=== PATIENT | male | born 1985 | race Caucasian/White ===

== ENCOUNTER 2016-11-13 15:31 | Emergency (ER) | payer OTHER ==
[~2016-11-13] VITALS: Ht 160 cm; Wt 76.7 kg
[~2016-11-13 15:31] MED LIST: LOSARTAN POTASS50 MG PO; PREDNISONE10 MG PO
[2016-11-13 16:07] LABS: ADD MIUA? YES; BILIRUBIN NEGATIVE; BLOOD NEGATIVE; COLOR YELLOW ((YELLOW)); GLUCOSE (STRIP) NEGATIVE; KETONES NEGATIVE; LEUKOCYTES NEGATIVE; NITRITE NEGATIVE; PROTEIN (STRIP) 30; SPECIFIC GRAVITY 1.033 (1.000-1.030); UROBILINOGEN 0.2 MG/DL (0.2-1.0)
[2016-11-13 16:14] LABS: BACTERIA NONE SEEN /HPF; EPITHELIAL CELLS NONE SEEN /HPF; MUCUS 1+ /LPF; RED BLOOD CELLS 0-5 /HPF (0-5); UCUL ADDED? NO; WHITE BLOOD CELLS 0-5 /HPF (0-5)
[2016-11-13 16:15] LABS: HEMATOCRIT 48.9 % (38.0-50.0); MCHC 34.6 G/DL (30.0-36.0); MCV 86.9 FL (86-99); MEAN PLAT.VOLUME 9.9 uM^3 (9.0-12.4); PLATELET COUNT 333 K/uL (156-360); RBC DIS.WIDTH-CV 12.5 % (11.8-14.6); RBC DIS.WIDTH-SD 39.6 % (39-53); RED BLOOD COUNT 5.63 M/uL (4.00-5.50); WHITE BLOOD COUNT 11.9 K/uL (4.1-10.2)
[2016-11-13 16:21] LABS: CHLORIDE 105 mEq/L (99-109); SODIUM 144 mEq/L (136-147)
[2016-11-13 16:24] LABS: GLUCOSE 107 mg/dL (70-99)
[2016-11-13 16:25] LABS: ANION GAP 13 MEQ/L (2-14)
[2016-11-13 16:26] LABS: TOTAL BILIRUBIN 0.4 mg/dL (0.0-1.0)
[2016-11-13 16:27] LABS: ALKALINE PHOSPHATASE 71 IU/L (3-129); GFR ESTIMATE (CALCULATED) > 59 mL/min/
[2016-11-13 16:28] LABS: UREA NITROGEN (BUN) 12 mg/dL (9-23)
[2016-11-13 16:51] LABS: LIPASE 30 U/L (1.0-51.0)
[2016-11-13] MEDS ORDERED: PHENERGAN25 MG PR (18:50)
[2016-11-13] MEDS ORDERED: ZOFRAN ODT4 MG PO (18:50)
[2016-11-13 19:00] VITALS: BP 141/91
== END 2016-11-13 19:01 | disposition home or self-care (01) ==
LOC: EME 15:31
DX: T43.225A Adverse effect of selective serotonin reuptake inhibitors, initial encounter (principal); R11.2 Nausea with vomiting, unspecified; B34.9 Viral infection, unspecified; I10 Essential (primary) hypertension; K76.0 Fatty (change of) liver, not elsewhere classified; F41.9 Anxiety disorder, unspecified
CPT/HCPCS: 80053; 81003; 83690; 85027; 99281; 99283; J2765; J7030

== ENCOUNTER → 2017-08-28 | Outpatient (CLI) | payer OTHER ==
[~2017-08-28] MED LIST changes: +PHENERGAN25 MG PR; +ZOFRAN ODT4 MG PO
== END | disposition home or self-care (01) ==
LOC: NUC 08-12 07:00
DX: R11.2 Nausea with vomiting, unspecified (principal); K21.9 Gastro-esophageal reflux disease without esophagitis
CPT/HCPCS: 78264; A9541